=== PATIENT | male | born 1965 | race Caucasian/White ===

== ENCOUNTER 2019-08-08 10:23 | Emergency (ER) | payer OTHER ==
[~2019-08-08] VITALS: Ht 180.3 cm; Wt 97.5 kg
[2019-08-08] MEDS ORDERED: LIPITOR10 MG PO (10:29)
[2019-08-08 12:05] VITALS: BP 122/75
== END 2019-08-08 12:11 | disposition home or self-care (01) ==
LOC: M.ERS 10:23
DX: M25.561 Pain in right knee (principal)